=== PATIENT | female | born 1990 | race Caucasian/White ===

== ENCOUNTER 2016-10-21 11:59 | Emergency (ER) | payer BC, OTHER ==
[~2016-10-21] VITALS: Ht 167.6 cm; Wt 66.0 kg
[~2016-10-21 11:59] MED LIST: ADD/10 PO; B-COTAB18 PO; DEXL60CA4 PO; JNLF153028 PO; LYSI500C4 PO; OMEGCAP2 PO
[2016-10-21 12:11] VITALS: TEMP 36.5; Ht 167.6 cm; Wt 66.0 kg
[2016-10-21] MEDS ORDERED: MAGNESIUM OIL TOP (12:55)
[2016-10-21] MEDS ORDERED: ACYCLOVIR OINTMENT TOP (12:55)
[2016-10-21] MEDS ORDERED: MELO7.5T5 PO (12:55)
--- NOTE | 2016-10-21 13:10 | DIAGNOSTIC IMAGING REPORT ---
Left second toe 3 views CLINICAL HISTORY: Left second toe pain status post trauma COMPARISON: None. DISCUSSION: No fractures or dislocations are visualized. The provided lateral view is somewhat obliqued. There is no evidence for soft tissue swelling. IMPRESSION: No fractures or dislocations identified. Electronically signed by: Rell Gibbs M.D. 10/21/2016 1:08 PM Dictated Date/Time: 10/21/2016 1:06 PM
--- NOTE | 2016-10-21 13:40 | EMERGENCY ROOM VISIT NOTE ---
ED Visit Note First contact with patient: 12:18 Chief Complaint: Broken Toe-Nerve Pain/Burning History of Present Illness: Patient is a 26-year-old female who presents to the emergency department today for evaluation of pain to the LEFT great toe. She reports that a few days ago a wooden board fell on the tow causing a moderate amount of pain. She is had purple discoloration under the toenail. She reports a throbbing sensation to the toe which is worse with putting shoes on. She denies any bloody discharge or drainage. The patient rates her current discomfort as 6/10. She denies any associated proximal foot pain, ankle pain, or lower leg pain. Medications: No current medications. Allergies: No known allergies. PMH: No pertinent past medical history. SHx: Patient is a 26-year-old female who lives locally. ROS: All pertinent positive and negative review of systems are appropriately documented in the History of Present Illness. Physical Exam: VITAL SIGNS Vital signs and nursing notes were reviewed. GENERAL 26-year-old female appearing her stated age who is in no acute distress. Communicates well with provider and answers questions appropriately. MUSCULOSKELETAL There is a subungual hematoma noted to the LEFT second toe. Moderately tender to palpation. Full range of motion appreciated. No step-off deformities. No tenderness to palpation extending into the proximal toe or foot. NEUROLOGIC Spinothalamic tract was found to be intact with ability to discriminate sharp versus dull sensation throughout the 2nd toe and foot. No sensory defects of the dorsal column were appreciated utilizing light touch for evaluation. VASCULAR Capillary refill was brisk. IMAGING: Left second toe 3 views CLINICAL HISTORY: Left second toe pain status post trauma COMPARISON: None. DISCUSSION: No fractures or dislocations are visualized. The provided lateral view is somewhat obliqued. There is no evidence for soft tissue swelling. IMPRESSION: No fractures or dislocations identified. PROCEDURE: Costs and benefits of performing nail trephination were discussed with the patient who acknowledges understanding and is in agreement with treatment plan. Verbal consent was obtained prior to performing the procedure. The LEFT second toenail was cleansed with alcohol swab. Electrocautery was utilized to bore a small hole through the nail. A moderate amount of dark blood was drained from under the toenail. The area was cleansed with alcohol swab and dressed with bacitracin Band-Aid. Patient tolerated procedure well. No complications were met. ED Course: Patient was seen and evaluated by myself. X-ray of the affected toe was obtained. Imaging results as above. Imaging results were reviewed with the patient who acknowledges understanding. Nail trephination was performed as described above. Patient tolerated procedure well. Patient will follow with her primary care provider from today's visit or return for any changing or worsening symptoms. Patient discharged home in good condition. In the evaluation and treatment of this patient, the following differential diagnoses were considered: Toe Fracture, Toe Sprain, Turf Toe, Gout. Impression: Subungual Hematoma to LEFT 2nd Toe - Drained Discharge Instructions: You were treated in the Emergency Department today for your Subungual Hematoma. Proper wound care is essential for adequate wound healing and infection prevention. You can shower and clean the wound with soap and water. Do not scour over the wound, pat dry with a towel. Do not submerse the wound (i.e. bathe or dish wash) until the wound has fully healed. You can use an antibiotic ointment with a dressing over the wound for the next 3-4 days. After this time you may leave the wound dry and open to the air. Look for signs of infection of the wound including: increased pain, swelling, foul discharge, streaking, or increased temperature. If any of these are noticed you should return to the Emergency Department for further assessment and treatment. The injury you have received may cause you to lose your fingernail. Anytime a fingernail is lost there is no guarantee that the nail will regrow. For pain control, you can use the following [id number] medicines (if >12 yo): - Regular strength (325mg/tab) Tylenol (acetaminophen) 2 tabs every 4-6 hours as needed. Do not exceed 12 tablets in a 24 hour period. Avoid taking more than 4 grams (4000 mg) of Tylenol per day. This includes any other sources of acetaminophen you may take on a regular basis. - Regular strength (200 mg/tab) Advil (ibuprofen) 1-2 tabs every 4-6 hours as needed. Do not exceed a dose of 3200 mg per day. Return to the emergency department if your symptoms worsen despite treatment course outlined above. Current/Historical Medications Scheduled Amphetamine Asp/Sulf/Dextramph (Adderall *), 30 MG PO DAILY B-Complex Vitamins (Vitamin B Complex), 1 TAB PO QAM Dexlansoprazole (Dexilant), 60 MG PO QAM Ethinyl Estradiol/Norethindr (), 1 TAB PO DAILY Lysine (L-Lysine), 500 MG PO HS Meloxicam (Mobic), 7.5 MG PO DAILY [place]-3 Fatty Acids (Fish Oil), 1 CAP PO WEEKLY [Acyclovir Ointment], 1 TOP TID [Magnesium Oil], 2 SPRAYS TOP DAILY Allergies Coded Allergies: No Known Allergies (Unverified , 10/21/16) Vital Signs Date Time Temp Pulse Resp B/P Pulse Ox O2 Delivery O2 Flow Rate FiO2 10/21/16 13:49 71 128/72 99 10/21/16 12:11 36.5 84 18 128/74 99 Room Air Departure Information Impression Primary Impression: Subungual hematoma of left foot Dispostion Home / Self-Care Condition GOOD Referrals Brandon Piper III, CRNP (PCP) Patient Instructions ED Hematoma Subungual, [facility] Additional Instructions You were treated in the Emergency Department today for your Subungual Hematoma. Proper wound care is essential for adequate wound healing and infection prevention. You can shower and clean the wound with soap and water. Do not scour over the wound, pat dry with a towel. Do not submerse the wound (i.e. bathe or dish wash) until the wound has fully healed. You can use an antibiotic ointment with a dressing over the wound for the next 3-4 days. After this time you may leave the wound dry and open to the air. Look for signs of infection of the wound including: increased pain, swelling, foul discharge, streaking, or increased temperature. If any of these are noticed you should return to the Emergency Department for further assessment and treatment. The injury you have received may cause you to lose your fingernail. Anytime a fingernail is lost there is no guarantee that the nail will regrow. For pain control, you can use the following [id number]-[id number] medicines (if >12 yo): - Regular strength (325mg/tab) Tylenol (acetaminophen) 2 tabs every 4-6 hours as needed. Do not exceed 12 tablets in a 24 hour period. Avoid taking more than 4 grams (4000 mg) of Tylenol per day. This includes any other sources of acetaminophen you may take on a regular basis. - Regular strength (200 mg/tab) Advil (ibuprofen) 1-2 tabs every 4-6 hours as needed. Do not exceed a dose of 3200 mg per day. Return to the emergency department if your symptoms worsen despite treatment course outlined above. Problem Qualifiers Primary Impression: Subungual hematoma of left foot Encounter type: initial encounter Qualified Codes: S90.222A - Contusion of left lesser toe(s) with damage to nail, initial encounter
[2016-10-21 13:49] VITALS: BP 128/72; PULSE 71; O2SAT 99
== END 2016-10-21 13:45 | disposition home or self-care (01) ==
LOC: C.EDB 12:01 → C.EDD 13:45
DX: S90.222A Contusion of left lesser toe(s) with damage to nail, initial encounter (principal); W22.8XXA Striking against or struck by other objects, initial encounter; Z79.899 Other long term (current) drug therapy

== ENCOUNTER → 2016-11-04 | Outpatient (CLI) | payer BC, OTHER ==
[~2016-11-04] MED LIST changes: +ACYCLOVIR OINTMENT TOP; +MAGNESIUM OIL TOP; +MELO7.5T5 PO
[2016-11-04 14:00] LABS: ALKALINE PHOSPHATASE 66 U/L (45-117); AMYLASE 51 U/L (25-115); AST/SGOT 23 U/L (15-37); BLOOD UREA NITROGEN 10 mg/dl (7-18); BUN/CREATININE RATIO 13.5 (10-20); CALCIUM 9.3 mg/dl (8.5-10.1); CARBON DIOXIDE 25 mmol/L (21-32); CHLORIDE 105 mmol/L (98-107); CREATININE 0.72 mg/dl (0.60-1.20); GLUCOSE 93 mg/dl (70-99); POTASSIUM 4.1 mmol/L (3.5-5.1); SODIUM 140 mmol/L (136-145)
[2016-11-04 14:02] LABS: ALB/GLOB RATIO 1.1 (0.9-2); ALT/SGPT 55 U/L (12-78)
[2016-11-09 11:27] LABS: IGA SERUM 319 mg/dL (81-463); TIS TRANS IGA 1 U/mL (<4)
== END | disposition home or self-care (01) ==
LOC: C.LAB1850 12:00
PROVIDERS: ATTEND Registered Nurse
DX: R14.0 Abdominal distension (gaseous) (principal)

== ENCOUNTER → 2016-11-06 | Outpatient (CLI) | payer BC, OTHER ==
--- NOTE | 2016-11-06 11:46 | DIAGNOSTIC IMAGING REPORT ---
BILIARY ULTRASOUND CLINICAL HISTORY: Right upper quadrant abdominal pain and nausea COMPARISON STUDY: 07/31/2011 FINDINGS: The gallbladder appears sonographically normal. The liver appears sonographically normal. There is no ductal dilatation. The common bile duct measures 3 mm. There is no right-sided hydronephrosis. There is a 45 x 24 x 43 mm density abutting the pancreatic head. There is unclear whether this represents an exophytic pancreatic lesion, node, or duodenum. A CT scan is recommended in follow-up. IMPRESSION: Nonspecific 4.5 cm structure abutting the pancreatic head. Unfortunately is not possible to determine whether this represents a bowel loop, or pathologic structure. A CT scan is recommended in follow-up. Electronically signed by: Rell Gibbs M.D. 11/06/2016 11:44 AM Dictated Date/Time: 11/06/2016 11:40 AM
== END | disposition home or self-care (01) ==
LOC: C.ULTR 11:08
PROVIDERS: ATTEND Registered Nurse
DX: R11.0 Nausea (principal); R14.0 Abdominal distension (gaseous); R10.11 Right upper quadrant pain; R93.3 Abnormal findings on diagnostic imaging of other parts of digestive tract

== ENCOUNTER → 2016-11-09 | Outpatient (CLI) | payer BC, OTHER ==
[~2016-11-09] MED LIST changes: +OPTIRAY 320 IV PRN
--- NOTE | 2016-11-09 15:48 | DIAGNOSTIC IMAGING REPORT ---
ABDOMEN CT WITH IV AND ORAL CONTRAST CT DOSE: 208.03 mGycm HISTORY: Abnormal ultrasound peripancreatic mass TECHNIQUE: Multiaxial CT images of the abdomen was performed following the use of intravenous and oral contrast. COMPARISON STUDY: Ultrasound dated 11/06/2016 FINDINGS: Lung bases are clear. Liver spleen and pancreas are unremarkable. Gallbladder is contracted. Kidneys enhance uniformly. The adrenal glands are unremarkable. Pancreas again is uniform throughout. There is no significant peripancreatic lesion. The density seen on ultrasound most likely relates to bowel artifact. Bowel pattern is considered nonobstructive. There is no significant abdominal adenopathy. IMPRESSION: Negative study. Specifically, no evidence for abnormal mass within the pancreatic region. The ultrasonic findings previously described appear to be based on artifact Electronically signed by: Jewel Nelson M.D. 11/09/2016 3:46 PM Dictated Date/Time: 11/09/2016 3:44 PM
== END | disposition home or self-care (01) ==
LOC: C.CTS 15:07
PROVIDERS: ATTEND Registered Nurse
DX: R93.5 Abnormal findings on diagnostic imaging of other abdominal regions, including retroperitoneum (principal)

== ENCOUNTER → 2016-11-18 | Outpatient (CLI) | payer OTHER ==
[~2016-11-18] MED LIST changes: -OPTIRAY 320 IV PRN
--- NOTE | 2016-11-18 10:58 | DIAGNOSTIC IMAGING REPORT ---
GI W/AIR SMALL BOWEL ROUTINE CLINICAL HISTORY: R10.11 Abdominal pain, acute, right upper [id number]. Nausea. COMPARISON STUDY: CT abdomen and pelvis 11/09/2016 FLUOROSCOPY TIME: 1.6 minutes. FINDINGS: Patient initiates swallowing function well. Esophagus normal in course and caliber. Gastroesophageal junction is normal. The appearance of the stomach is unremarkable. Duodenal bulb fills well and is negative for ulceration. Duodenal sweep is unremarkable. Mucosal pattern and transit time throughout small bowel are unremarkable. Spot films the terminal ileum are within normal limits. IMPRESSION: Normal study Electronically signed by: Jewel Nelson M.D. 11/18/2016 10:57 AM Dictated Date/Time: 11/18/2016 10:54 AM
== END | disposition home or self-care (01) ==
LOC: C.RAD 09:24
PROVIDERS: ATTEND Registered Nurse
DX: R10.11 Right upper quadrant pain (principal)

== ENCOUNTER → 2017-01-27 | Outpatient (CLI) | payer BC, OTHER ==
[2017-01-27 18:31] LABS: URINE APPEARANCE CLEAR (CLEAR); URINE BILIRUBIN NEG (NEG); URINE COLOR DK YELLOW; URINE NITRITE NEG (NEG); URINE SPECIFIC GRAVITY 1.009 (1.000-1.030); UROBILINOGEN NEG (NEG)
[2017-01-27 18:41] LABS: MANUAL MICROSCOPIC REQUIRED? NO; REVIEW REQ? NO
== END | disposition home or self-care (01) ==
LOC: C.LABSPEC 17:36
PROVIDERS: ATTEND Nurse Practitioner Family
DX: R10.9 Unspecified abdominal pain (principal)

== ENCOUNTER → 2017-02-01 | Outpatient (CLI) | payer OTHER ==
[2017-02-01 13:08] LABS: BASO % 0.3 %; BASO ABS # 0.03 K/uL (0-0.2); COMPLETE YES; EOS % 1.1 %; IG% 0.2 %; LYMPH % 29.2 %; LYMPH ABS # 3.02 K/uL (1.2-3.4); MEAN CELL VOLUME 93.8 fL (80-100); MEAN CORPUSCULAR HEMOGLOBIN 31.9 pg (25-34); MEAN PLATELET VOLUME 9.7 fL (7.4-10.4); NEUT % 63.2 %; PLATELET COUNT 316 K/uL (130-400); RED BLOOD COUNT 4.48 M/uL (4.2-5.4); WHITE BLOOD COUNT 10.35 K/uL (4.8-10.8)
[2017-02-01 14:09] LABS: ALKALINE PHOSPHATASE 67 U/L (45-117); ALT/SGPT 49 U/L (12-78); AST/SGOT 25 U/L (15-37); BLOOD UREA NITROGEN 12 mg/dl (7-18); BUN/CREATININE RATIO 17.7 (10-20); CALCIUM 9.3 mg/dl (8.5-10.1); CARBON DIOXIDE 25 mmol/L (21-32); CHLORIDE 103 mmol/L (98-107); CREATININE 0.65 mg/dl (0.60-1.20); GLUCOSE 89 mg/dl (70-99); MAGNESIUM 2.1 mg/dl (1.8-2.4); SODIUM 138 mmol/L (136-145)
[2017-02-01 14:20] LABS: FERRITIN 11.4 ng/ml (8.0-388.0)
== END | disposition home or self-care (01) ==
LOC: C.LAB1850 11:51
PROVIDERS: ATTEND Nurse Practitioner Family
DX: R53.83 Other fatigue (principal); E55.9 Vitamin D deficiency, unspecified

== ENCOUNTER → 2017-02-12 | Outpatient (CLI) | payer OTHER ==
[~2017-02-12] MED LIST changes: +SINCALIDE INJ 1.3 MCG in SODIUM CHLORIDE 0.9% 100ML 100 ML IV SCH
--- NOTE | 2017-02-12 15:13 | DIAGNOSTIC IMAGING REPORT ---
NUCLEAR HEPATOBILIARY SCAN WITH EJECTION FRACTION IMAGING CLINICAL HISTORY: Epigastric abdominal pain. Gastroesophageal reflux disease. COMPARISON STUDY: Abdominal CT dated 11/09/2016. TECHNIQUE: Dynamic images of the liver and anterior abdomen were obtained every 5 minutes for a total of 60 minutes following the IV administration of 5.4mCi of technetium 99m Choletec. 1.3 mcg of sincalide was then injected with additional images acquired every 5 minutes for 45 minutes to calculate the gallbladder ejection fraction. FINDINGS: The hepatobiliary scan shows prompt and homogeneous hepatic uptake. There is visualized activity within the intra and extrahepatic biliary tree at 10 minutes, and within the gallbladder at 10 minutes. There is normal biliary to bowel transit, with small bowel visualized by 20 minutes. On the sincalide imaging, the gallbladder ejection fraction was measured at 92%. IMPRESSION: 1. Unremarkable nuclear hepatobiliary scan. There is no scintigraphic evidence of cholecystitis. 2. The gallbladder ejection fraction measured 92% which is normal. Electronically signed by: Abdi Olsen M.D. 02/12/2017 3:11 PM Dictated Date/Time: 02/12/2017 3:10 PM
== END | disposition home or self-care (01) ==
LOC: C.NUCL 12:54
PROVIDERS: ATTEND Registered Nurse
DX: K21.9 Gastro-esophageal reflux disease without esophagitis (principal)

== ENCOUNTER → 2017-12-16 | Outpatient (CLI) | payer OTHER ==
[~2017-12-16] MED LIST changes: -SINCALIDE INJ 1.3 MCG in SODIUM CHLORIDE 0.9% 100ML 100 ML IV SCH
[2017-12-16 16:35] LABS: BASO % 0.5 %; BASO ABS # 0.04 K/uL (0-0.2); EOS % 0.9 %; EOS ABS # 0.07 K/uL (0-0.5); HEMOGLOBIN 13.3 g/dL (12.0-16.0); IG# 0.02 K/uL (0.00-0.02); LYMPH % 30.5 %; LYMPH ABS # 2.28 K/uL (1.2-3.4); MEAN CELL VOLUME 93.2 fL (80-100); MEAN CORPUSCULAR HGB CONC 33.3 g/dl (32-36); MEAN PLATELET VOLUME 9.5 fL (7.4-10.4); MONO % 6.3 %; MONO ABS # 0.47 K/uL (0.11-0.59); NEUT % 61.5 %; PLATELET COUNT 322 K/uL (130-400); RED CELL DISTRIBUTION WIDTH CV 12.6 % (11.5-14.5); RED CELL DISTRIBUTION WIDTH SD 42.4 fL (36.4-46.3); WHITE BLOOD COUNT 7.48 K/uL (4.8-10.8)
--- NOTE | 2017-12-16 16:45 | DIAGNOSTIC IMAGING REPORT ---
R RIBS UNILATERAL WITH PA CHEST CLINICAL HISTORY: R10.9 pain COMPARISON STUDY: None FINDINGS: Negative right ribs. Negative chest. No evidence pneumothorax. Lungs are clear. IMPRESSION: Negative study The above report was generated using voice recognition software. It may contain grammatical, syntax or spelling errors. Electronically signed by: Jewel Nelson M.D. 12/16/2017 4:43 PM Dictated Date/Time: 12/16/2017 4:43 PM
[2017-12-16 17:02] LABS: ALBUMIN 3.8 gm/dl (3.4-5.0); ALT/SGPT 37 U/L (12-78); AST/SGOT 15 U/L (15-37); BLOOD UREA NITROGEN 11 mg/dl (7-18); CALCIUM 8.9 mg/dl (8.5-10.1); CARBON DIOXIDE 26 mmol/L (21-32); CREATININE 0.96 mg/dl (0.60-1.20); GLUCOSE 84 mg/dl (70-99); POTASSIUM 3.8 mmol/L (3.5-5.1); SODIUM 137 mmol/L (136-145)
[2017-12-16 17:04] LABS: ALKALINE PHOSPHATASE 56 U/L (45-117); TOTAL PROTEIN 7.6 gm/dl (6.4-8.2)
== END | disposition home or self-care (01) ==
LOC: C.RAD 15:36
PROVIDERS: ATTEND Nurse Practitioner Family
DX: R10.9 Unspecified abdominal pain (principal)

== ENCOUNTER 2018-01-24 20:02 | Emergency (ER) | payer OTHER ==
[2018-01-24 20:13] VITALS: TEMP 36.4; Ht 167.6 cm
[2018-01-24] MEDS ORDERED: ONDANSETRON INJ 2 MG/ML 2 ML VIAL IV STA (20:33)
[2018-01-24] MEDS ORDERED: KETOROLAC TROMETHAMINE 30 MG/ML VIAL IV STA (20:33)
[2018-01-24] MEDS ORDERED: SODIUM CHLORIDE 0.9% 1000ML 2,000 ML IV STA (20:33)
[2018-01-24 20:56] LABS: BASO % 0.1 %; BASO ABS # 0.02 K/uL (0-0.2); EOS % 0.6 %; EOS ABS # 0.12 K/uL (0-0.5); HEMATOCRIT 45.2 % (37-47); HEMOGLOBIN 15.5 g/dL (12.0-16.0); IG# 0.05 K/uL (0.00-0.02); LYMPH % 5.8 %; MEAN CELL VOLUME 93.2 fL (80-100); MEAN CORPUSCULAR HGB CONC 34.3 g/dl (32-36); MEAN PLATELET VOLUME 9.4 fL (7.4-10.4); MONO % 5.3 %; NEUT % 87.9 %; NEUT ABS # 16.75 K/uL (1.4-6.5); PLATELET COUNT 318 K/uL (130-400); RED CELL DISTRIBUTION WIDTH CV 12.6 % (11.5-14.5); RED CELL DISTRIBUTION WIDTH SD 43.4 fL (36.4-46.3); WHITE BLOOD COUNT 19.04 K/uL (4.8-10.8)
[2018-01-24 21:13] LABS: ALBUMIN 4.1 gm/dl (3.4-5.0); ALT/SGPT 53 U/L (12-78); AST/SGOT 23 U/L (15-37); BLOOD UREA NITROGEN 18 mg/dl (7-18); CARBON DIOXIDE 24 mmol/L (21-32); CREATININE 0.78 mg/dl (0.60-1.20); GLUCOSE 103 mg/dl (70-99); LIPASE 145 U/L (73-393); POTASSIUM 3.6 mmol/L (3.5-5.1); SODIUM 138 mmol/L (136-145)
[2018-01-24 21:16] LABS: ALKALINE PHOSPHATASE 68 U/L (45-117); TOTAL PROTEIN 8.4 gm/dl (6.4-8.2)
--- NOTE | 2018-01-24 22:07 | DIAGNOSTIC IMAGING REPORT ---
ABDOMEN 2VIEW W/PA CHEST RTN CLINICAL HISTORY: vomiting nausea. Vomiting. COMPARISON STUDY: No previous studies for comparison. FINDINGS: The soft tissues, psoas shadows, renal outlines and intestinal gas pattern appear normal. There is no evidence for bowel obstruction. There is no evidence for free intraperitoneal air. No abnormal abdominal calcifications are seen. A frontal view of the chest was performed and is unremarkable. IMPRESSION: Normal study. The above report was generated using voice recognition software. It may contain grammatical, syntax or spelling errors. Electronically signed by: Jewel Nelson M.D. 01/24/2018 10:06 PM Dictated Date/Time: 01/24/2018 10:06 PM
[2018-01-24] MEDS ORDERED: ONDA4TAB46 PO (22:15)
[2018-01-24] MEDS ORDERED: ONDANSETRON HOME PACK 4MG OD TAB PO ONE (22:15)
[2018-01-24 22:34] VITALS: BP 131/80; PULSE 84; O2SAT 99
--- NOTE | 2018-01-25 01:21 | EMERGENCY ROOM VISIT NOTE ---
History Report prepared by Pardeep: Tito Cunningham Under the Supervision of: Dr. Bogdan Ivy D.O. First contact with patient: 20:21 Chief Complaint: VOMITING Stated Complaint: VOMITING History of Present Illness The patient is a 27 year old female who presents to the Emergency Room with complaints of intermittent, vomiting beginning 3.5 hours ago. The patient states she was eating at [employer] when her symptoms began. She reports she was with company, all of whom ate the same meal, and no one else has expressed symptoms. The patient notes she has developed nausea and abdominal cramping. She states she cannot eat or drink anything without worsening her symptoms. The patient reports her abdominal cramping is only present when she eats or drinks, and her nausea is constant. She notes her last bowel movement was 30 minutes ago , and it was diarrhea. The patient states her diarrhea began 2 hours ago, and she had two episodes so far. She notes she has not been around anyone else sick. The patient states her LNMP was last week. She denies a history of abdominal surgeries, pain with urination, burning with urination, vaginal discharge, vaginal bleeding, cough, and runny nose. Source of History: patient Onset: 3.5 hours ago Quality: other (vomiting) Timing: intermittent Modifying Factors (Worsening): eating, drinking Associated Symptoms: + nausea, + abdominal pain (cramping), + diarrhea, No cough Note: Denies: pain with urination, burning with urination, vaginal discharge, vaginal bleeding, runny nose Review of Systems See HPI for pertinent positives & negatives. A total of 10 systems reviewed and were otherwise negative. Past Medical & Surgical Medical Problems: (1) Stomach problems Family History Cancer Heart disease Hypertension Kidney disease Kidney stones Social History Smoking Status: Never Smoker Marital Status: single Housing Status: lives alone Occupation Status: student Current/Historical Medications Scheduled Amphetamine Asp/Sulf/Dextramph (Adderall *), 30 MG PO DAILY B-Complex Vitamins (Vitamin B Complex), 1 TAB PO QAM Dexlansoprazole (Dexilant), 60 MG PO QAM Ethinyl Estradiol/Norethindr (), 1 TAB PO DAILY Lysine (L-Lysine), 500 MG PO HS Meloxicam (Mobic), 7.5 MG PO DAILY [place]-3 Fatty Acids (Fish Oil), 1 CAP PO WEEKLY [Acyclovir Ointment], 1 TOP TID [Magnesium Oil], 2 SPRAYS TOP DAILY Scheduled PRN Ondansetron Hcl (Zofran), 4 MG PO TID PRN for Nausea Allergies Coded Allergies: No Known Allergies (Unverified , 10/21/16) Physical Exam Vital Signs Date Time Temp Pulse Resp B/P (MAP) Pulse Ox O2 Delivery O2 Flow Rate FiO2 01/24/18 22:34 84 18 131/80 99 01/24/18 21:26 99 18 140/86 01/24/18 20:13 36.4 101 20 115/78 98 Room Air Physical Exam GENERAL: Sitting up in bed, holding vomit bag. Talking in full sentences. EYE EXAM: normal conjunctiva. OROPHARYNX: no exudate, no erythema, lips, buccal mucosa, and tongue normal and mucous membranes are moist NECK: supple, no nuchal rigidity, no adenopathy, non-tender LUNGS: Clear to auscultation. Normal chest wall mechanics HEART: no murmurs, S1 normal and S2 normal ABDOMEN: abdomen soft, non-tender, normo-active bowel sounds, no masses, no rebound or guarding. BACK: Back is symmetrical on inspection and there is no deformity, no midline tenderness, no CVA tenderness. SKIN: no rashes and no bruising UPPER EXTREMITIES: upper extremities are grossly normal. LOWER EXTREMITIES: No pitting edema. NEURO EXAM: Normal sensorium, cranial nerves II-XII grossly intact, normal speech, no gross weakness of arms, no gross weakness of legs. Medical Decision & Procedures ER Provider Diagnostic Interpretation: Radiology results as stated below per my review and the radiologist's interpretation: ABDOMEN 2VIEW W/PA CHEST RTN CLINICAL HISTORY: vomiting nausea. Vomiting. COMPARISON STUDY: No previous studies for comparison. FINDINGS: The soft tissues, psoas shadows, renal outlines and intestinal gas pattern appear normal. There is no evidence for bowel obstruction. There is no evidence for free intraperitoneal air. No abnormal abdominal calcifications are seen. A frontal view of the chest was performed and is unremarkable. IMPRESSION: Normal study. The above report was generated using voice recognition software. It may contain grammatical, syntax or spelling errors. Electronically signed by: Jewel Nelson M.D. 01/24/2018 10:06 PM Dictated Date/Time: 01/24/2018 10:06 PM Laboratory Results 4/30/18 20:44 Red Blood Count 4.85, Mean Corpuscular Volume 93.2, Mean Corpuscular Hemoglobin 32.0, Mean Corpuscular Hemoglobin Concent 34.3, Mean Platelet Volume 9.4, Neutrophils (%) (Auto) 87.9, Lymphocytes (%) (Auto) 5.8, Monocytes (%) (Auto) 5.3, Eosinophils (%) (Auto) 0.6, Basophils (%) (Auto) 0.1, Neutrophils # (Auto) 16.75, Lymphocytes # (Auto) 1.10, Monocytes # (Auto) 1.00, Eosinophils # (Auto) 0.12, Basophils # (Auto) 0.02 01/24/18 20:44 Test 01/24/18 20:10 01/24/18 20:44 Urine Color DK YELLOW Urine Appearance CLEAR (CLEAR) Urine pH 5.0 (4.5-7.5) Urine Specific [place] 1.034 (1.000-1.030) Urine Protein TRACE (NEG) Urine Glucose (UA) NEG (NEG) Urine Ketones 3+ (NEG) Urine Occult Blood NEG (NEG) Urine Nitrite NEG (NEG) Urine Bilirubin NEG (NEG) Urine Urobilinogen NEG (NEG) Urine Leukocyte Esterase NEG (NEG) Urine WBC (Auto) 1-5 /hpf (0-5) Urine RBC (Auto) 0-4 /hpf (0-4) Urine Hyaline Casts (Auto) 1-5 /lpf (0-5) Urine Epithelial Cells (Auto) 10-20 /lpf (0-5) Urine Bacteria (Auto) NEG (NEG) Urine Test NEG (NEG) White Blood Count 19.04 K/uL (4.8-10.8) Red Blood Count 4.85 M/uL (4.2-5.4) Hemoglobin 15.5 g/dL (12.0-16.0) Hematocrit 45.2 % (37-47) Mean Corpuscular Volume 93.2 fL (80-100) Mean Corpuscular Hemoglobin 32.0 pg (25-34) Mean Corpuscular Hemoglobin Concent 34.3 g/dl (32-36) Platelet Count 318 K/uL (130-400) Mean Platelet Volume 9.4 fL (7.4-10.4) Neutrophils (%) (Auto) 87.9 % Lymphocytes (%) (Auto) 5.8 % Monocytes (%) (Auto) 5.3 % Eosinophils (%) (Auto) 0.6 % Basophils (%) (Auto) 0.1 % Neutrophils # (Auto) 16.75 K/uL (1.4-6.5) Lymphocytes # (Auto) 1.10 K/uL (1.2-3.4) Monocytes # (Auto) 1.00 K/uL (0.11-0.59) Eosinophils # (Auto) 0.12 K/uL (0-0.5) Basophils # (Auto) 0.02 K/uL (0-0.2) RDW Standard Deviation 43.4 fL (36.4-46.3) RDW Coefficient of Variation 12.6 % (11.5-14.5) Immature Granulocyte % (Auto) 0.3 % Immature Granulocyte # (Auto) 0.05 K/uL (0.00-0.02) Anion Gap 7.0 mmol/L (3-11) Estimated GFR () 122.5 Estimated GFR (Non- 105.7 BUN/Creatinine Ratio 22.6 (10-20) Calcium Level 9.0 mg/dl (8.5-10.1) Total Bilirubin 0.6 mg/dl (0.2-1) Direct Bilirubin 0.1 mg/dl (0-0.2) Aspartate Amino Transf (AST/SGOT) 23 U/L (15-37) Alanine Aminotransferase (ALT/SGPT) 53 U/L (12-78) Alkaline Phosphatase 68 U/L (45-117) Total Protein 8.4 gm/dl (6.4-8.2) Albumin 4.1 gm/dl (3.4-5.0) Lipase 145 U/L (73-393) Laboratory results per my review. Medications Administered Medications (Trade) Dose Ordered Sig/Aysha Route Start Time Stop Time Status Last Admin Dose Admin Sodium Chloride 2,000 ml @ 999 mls/hr Q2H1M STAT IV 01/24/18 20:33 01/24/18 22:33 DC 01/24/18 20:44 999 MLS/HR Ondansetron HCl (Zofran Inj) 4 mg NOW STAT IV 01/24/18 20:33 01/24/18 20:39 DC 01/24/18 20:44 4 MG Ketorolac Tromethamine (Toradol Inj) 30 mg NOW STAT IV 01/24/18 20:33 01/24/18 20:39 DC 01/24/18 20:44 30 MG ED Course ED COURSE: Vital signs were reviewed and showed tachycardia The patients medical record was reviewed The above diagnostic studies were performed and reviewed. ED treatments and interventions as stated above. 2030: The patient was evaluated in room B01B. A complete history and physical examination was performed. 2032: Ordered Toradol 30mg IV, Zofran 4mg IV, Sodium Chloride 2000 ml @ 999 mls/ hr IV 2134: I reevaluated the patient. She is feeing much better. 2157: I reevaluated the patient. She continues to feel better. 2214: Ordered Ondansetron HCl 1 homepack PO 6: Upon reevaluation, the patient is resting and feeling much better. I discussed my findings with the patient and she understands and agrees with the treatment plan. Based on the patients age, coexisting illnesses, exam and lab findings the decision to treat as an outpatient was made. The patient remained stable while under my care. The patient appeared well at the time of discharge. Medical Decision Differential diagnoses includes but is not limited to gastritis, peptic ulcer disease, GERD, gallbladder disease, pancreatitis, small bowel obstruction, acute coronary syndrome, pericarditis, ischemic bowel, irritable bowel disease, irritable bowel syndrome, appendicitis, diverticulitis, malignancy, hernia, urinary tract infection, torsion, /ectopic , perforation, trauma, infectious. Patient is a 27-year-old female who presents the ER with vomiting diarrhea which is been present since 5 PM tonight. Last menstrual period was a week ago. No abdominal pain but this mid to diffuse cramping. Benign abdominal exam. White count with a leukocytosis of 19,000. Patient notes she has not been able to eat or drink anything since 5 PM tonight. BMP along with LFTs, bilirubin lipase is normal. UA was unremarkable. was negative. She did have a significant leukocytosis but with her benign abdomen and symptoms completely resolving with fluids and Zofran I do feel this likely secondary to the vomiting. was negative. Obstruction series was unremarkable. Patient was able to tolerate oral liquids and was discharged with Zofran to follow-up with PCP as an outpatient. Discussed with Pt concerning signs and symptoms to watch out for. Pt was instructed to follow up with their PCP and discussed with the patient their option to return to the ED at anytime for persistent or worsening symptoms. The appropriate anticipatory guidance and out- patient management, including indications for return to the emergency department , were explained at length to the patient and understood. Medication Reconcilliation Current Medication List: was personally reviewed by me Blood Pressure Screening Patient's blood pressure: Normal blood pressure Blood pressure disposition: Did not require urgent referral Impression Primary Impression: Nausea, vomiting, and diarrhea Scribe Attestation The scribe's documentation has been prepared under my direction and personally reviewed by me in its entirety. I confirm that the note above accurately reflects all work, treatment, procedures, and medical decision making performed by me. Departure Information Dispostion Home / Self-Care Prescriptions Ondansetron Hcl (ZOFRAN) 4 Mg Tab 4 MG PO TID Y for Nausea, #10 TAB Prov: Bogdan Ivy, DO 01/24/18 Referrals Brandon Piper III, CRNP (PCP) Forms HOME CARE DOCUMENTATION FORM, IMPORTANT VISIT INFORMATION Patient Instructions ED Vomiting Diarrhea Nonspecific Ad, My [facility] Additional Instructions Please follow up with your primary care doctor with in the next 24 hours. Any worsening of your symptoms, please return to the ED immediately. This includes any fevers greater than 100.4, worsening pain, chest pain, shortness breath, persistent nausea, vomiting, unable to eat or drink, or any other concerning signs or symptoms from your standpoint. Please take Zofran as needed for nausea vomiting. Any abdominal pain please return to the ER.
== END 2018-01-24 22:37 | disposition home or self-care (01) ==
LOC: C.EDB 20:04 → C.EDC 22:37
DX: R11.2 Nausea with vomiting, unspecified (principal); R19.7 Diarrhea, unspecified; Z79.899 Other long term (current) drug therapy